=== PATIENT | female | born 1990 | race Caucasian/White ===

== ENCOUNTER 2016-09-14 17:21 | Emergency (ER) | payer OTHER ==
[~2016-09-14] VITALS: Ht 172.7 cm; Wt 113.6 kg
[~2016-09-14 17:21] MED LIST: BACL10TA PO; CHOL500050 PO; CITA10TA9 PO; CYCL10TA9 PO; DESMOPRESSIN PO; GABA-502 PO; HYDR25CA PO; LEVO100T6 PO; POLY17PO2 PO; SUMA100T2 PO; TOPI-31 PO; TRAZ-115 PO
[2016-09-14 17:23] VITALS: BP 141/93; PULSE 76; RESP 16; O2SAT 99
[2016-09-14] MEDS ORDERED: Ondansetron 2 mg/mL 2 mL Inj IVPUSH ONE (18:00)
[2016-09-14] MEDS ORDERED: 0.9% Sodium Chloride 1,000 ML IV ONE (18:00)
[2016-09-14] MEDS ORDERED: Ondansetron 8 mg ODT Tablet PO ONE (18:05)
--- NOTE | 2016-09-14 18:06 | ED.REPORT ---
HPI-General Illness Date of Service Sep 14, 2016 ED Provider: Jerry Subramanian MD A 26 year old female with a medical history including MS, diabetes insipidus, migraines, and pituitary apoplexy s/p surgical intervention presents to the ED with dizziness onset this morning upon awakening. Associated symptoms include nausea, retching, diarrhea, and dehydration. The patient denies diaphoresis, fever, or other symptoms. She has been drinking Gatorade frequently. Nursing Notes Stated Complaint: DEHYDRATION FROM DIABETES INSIPIDUS Chief Complaint: Female Abdominal Pain Nursing Notes Reviewed: Yes ([employer] not reconciled) Allergies: Coded Allergies: Penicillins (Verified Allergy, Severe, hives, 09/14/16) lavender (Lavandula angustifolia) (Verified Adverse Reaction, Intermediate , Migraine, 09/14/16) TAPE (Verified Adverse Reaction, Unknown, UNKNOWN, 09/14/16) Scheduled ([Desmopressin]) 1.5 TAB PO DAILY Baclofen (Baclofen) 10 Mg Tablet 5 MG PO BID Cholecalciferol (Vitamin D3) (Vitamin D3) 50,000 Unit Capsule 50,000 UNIT PO QW Citalopram (Citalopram) 10 Mg Tablet 20 MG PO DAILY Gabapentin (Gabapentin) 300 Mg Capsule 600 MG PO BID Levothyroxine (Levothyroxine) 100 Mcg Tablet 100 MCG PO DAILY Topiramate (Topiramate) 100 Mg Tablet 100 MG PO BID Scheduled PRN Cyclobenzaprine (Cyclobenzaprine) 10 Mg Tablet 10 MG PO TID PRN PRN Spasm Hydroxyzine Pamoate (Vistaril) 25 Mg Capsule 25 MG PO HS PRN PRN For Insomnia Ondansetron ODT (Ondansetron ODT) 8 Mg Tab.rapdis 8 MG PO Q4H PRN PRN For Nausea Polyethylene Glycol 3350 (Polyethylene Glycol 3350) 17 Gm Powd.pack 17 GM PO PRN PRN PRN For Constipation Promethazine (Promethazine) 25 Mg Tablet 25 MG PO Q6H PRN PRN Nausea or dizziness (vertigo) Sumatriptan Succinate (Sumatriptan Succinate) 100 Mg Tablet 25 MG PO DAILY PRN PRN For Headache Trazodone (Trazodone) 50 Mg Tablet 50 MG PO HS PRN PRN prn General Time Seen by MD: 17:53 Chief Complaint Dizziness Hx Obtained From: Patient Arrived By: Walk-in Sudden in Onset?: Yes Onset Occurred: 9 - 12 hours ago Symptom Duration: Since onset Severity: Current: No pain currently Severity: Maximum: No pain Associated with: Reports: Nausea, Vomiting (Retching) Pertinent Negative: Relieved by nothing Recent Healthcare: No recent doctor visit Similar Sx Previous: Yes Past Medical History Past Medical History Notes: Neurologist: Dr. 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 Lesion with mixed signal and diminished post contrast enhancement within the central portion of the pituitary gland. Lesion has imaging characteristics most compatible with pituitary hemorrhage likely related to underlying pituitary adenoma. Please correlate with clinical and serologic data. 2. Periventricular white matter, corpus callosal and upper cervical spine lesions compatible with reported history of multiple sclerosis are stable compared to prior examination. Dictated by: Lian Hemphill MD, PhD on 01/20/2015 at 9:21 Past Medical History Chronic low back pain Insomnia Fibromyalgia MS Pituitary mass and subsequent apoplexy requiring surgical intervention July 2015 Resultant diabetes insipidus Reports: Migraines, Obesity Past Surgical History Surgery for pituitary apoplexy July 2015 Reports: Cholecystectomy Smoking History Current Every Day Smoker, Unknown if Ever Smoker Social History Has two children Alcohol Use: "Social" Drug Use: THC Occupation lives with boyfriend, no work or school Ambulatory Status Independent Review of Systems + Dehydration Full Review of Systems Constitutional: Denies: Fever Respiratory: Denies: Non-productive cough, Shortness of breath GI: Reports: Diarrhea, Nausea, Vomiting (Retching) Skin: Denies Diaphoresis Neurologic: Reports: Dizziness Complete sys rev & neg: except as marked. Physical Exam Vital Signs Vital Signs Date Time Temp Pulse Resp B/P Pulse Ox O2 Delivery O2 Flow Rate FiO2 09/14/16 22:18 71 22 130/79 100 Room Air 09/14/16 17:23 36.2 76 16 141/93 99 Room Air Initial VS: Reviewed, Vital signs normal Head / Eyes: Atraumatic, Normocephalic ENT: Conjunctiva normal, No scleral icterus Neck: Supple, Full range of motion Respiratory: Breath sounds normal, Clear to auscultation, No respiratory distress Cardiovascular: Regular rate & rhythm, Heart sounds normal Abdomen / GI: Soft, Non-tender Skin: Warm, Dry, No cyanosis Neurologic: Alert, Oriented, Nonfocal Psychiatric: Mood/affect normal, Behavior normal, Normal thought content General/Constitutional: Awake, Alert Interpretation & Diagnostics Lab Results Interpretation Result Diagram: 09/14/16 1828 09/14/16 1828 Test 09/14/16 18:28 09/14/16 19:36 White Blood Count 8.5th/mm3 (3.8-10.1) Red Blood Count 4.27mil/mm3 (3.90-5.20) Hemoglobin 12.7g/dL (12.0-15.6) Hematocrit 38.1% (35.0-46.0) Mean Corpuscular Volume 89.2fL (81-100) Mean Corpuscular Hemoglobin 29.7pg (27.0-35.0) Mean Corpuscular Hemoglobin Concent 33.3% (32.0-37.0) Red Cell Distribution Width 14.3% (12.3-15.4) Platelet Count krupa/L (150-400) Neutrophils (%) (Auto) 76.1% (40-74) Lymphocytes (%) (Auto) 4.1% (14-46) Monocytes (%) (Auto) 10.0% (4-12) Eosinophils (%) (Auto) 2.2% (0-5) Basophils (%) (Auto) 0.2% (0-3) Sodium Level 144mEq/L (134-144) Potassium Level 4.0mEq/L (3.5-5.2) Chloride Level 107mEq/L (97-108) Carbon Dioxide Level 19mmol/L (18-29) Blood Urea Nitrogen < 2mg/dL (6-20) Creatinine 0.65mg/dL (0.57-1.00) Estimat Glomerular Filtration Rate 158mL/min (>59) Glucose Level 119mg/dL (60-99) Calcium Level 9.8mg/dL (8.5-10.1) Total Bilirubin 0.4mg/dL (0.0-1.2) Aspartate Amino Transf (AST/SGOT) 58U/L (0-50) Alanine Aminotransferase (ALT/SGPT) 77U/L (0-32) Alkaline Phosphatase 84U/L (25-150) Total Protein 7.1g/dL (6.4-8.4) Albumin 4.2g/dL (3.4-5.0) Human Chorionic Gonadotropin, Qual Negative (Negative) Urine Color Straw (YELLOW) Urine Appearance Clear (CLEAR,HAZY) Urine pH 5.5 (5.0-8.0) Urine Specific [place] <1.005 (1.003-1.035) Urine Protein Negativemg/dL (NEG,TRACE) Urine Glucose (UA) Negativemg/dL (NEGATIVE) Urine Ketones Negativemg/dL (NEGATIVE) Urine Occult Blood Negative (NEGATIVE) Urine Nitrite Negative (NEGATIVE) Urine Bilirubin Negative (NEGATIVE) Urine Urobilinogen Normalmg/dL (NORMAL) Urine Leukocyte Esterase Small (NEGATIVE) Urine RBC 0-2/hpf (0-2) Urine WBC 0-5/hpf (0-5) Urine Epithelial Cells Occasional/hpf (NONE-MOD) Urine Crystals None seen (NONE SEEN) Urine Bacteria None/hpf (NONE-FEW) Urine Hyaline Casts None/lpf (NONE) Urine Granular Casts None seen (NONE SEEN) Urine Waxy Casts None seen (NONE SEEN) Urine Red Blood Cell Casts None seen (NONE SEEN) Urine White Blood Cell Casts None seen (NONE SEEN) Urine Mucus None seen (None Seen) Urine Trichomonas None seen (NONE SEEN) Urine Yeast None (NONE SEEN) Urinalysis Comment None Urine Culture Reflexed Indicated Hold Urine Received (Received) Lab Results Interpretation: CBC normal CMP marginal LFT abnormality and patient states known chronic negative UA negative Re-Eval/Medical Decision Med Decision/Clinical Course This is a 26-year-old female with a history of pituitary apoplexy and surgical intervention with subsequent diabetes insipidus last drink liters of fluid a day (Gatorade) to stay hydrated and avoid electrolyte abnormalities. She developed some dizziness that almost sounds mildly vertiginous and some nausea and vomiting today and was worried about becoming increasingly dehydrated. He has had no fever, no abdominal pain, no diarrhea. She has no focal deficit. Exam she appears well and no extremity. She has no nystagmus or focal deficits that she is able to sit up and turn her head without overtly clearcut vertiginous findings. Her neuro exam is normal. Her Abdomen soft and entirely nontender. An IV was placed she received hydration, anti-emetics and is improved. Labs are obtained revealed no electrolyte abnormalities. Patient is much improved. I am not finding indication for imaging. Patient's being discharge and some ondansetron and promethazine. Routine precautions are reviewed. Source of Hx: Old records Time of Eval: 20:10 Patient Status: Condition improved Re-Evaluation/Progress Note: Patient rechecked. Additional physical exam performed. Time of Eval: 21:19 Patient Status: Condition improved Re-Evaluation/Progress Note: Patient is feeling much improved. Discussed with patient lab results, diagnosis, and plan for discharge. Follow-up and return to the ER instructions given. Patient agrees with plan for care and all questions were addressed. Differential Diagnosis: Negative: Abdominal pain, Abrasion, Allergies, Asthma, Diabetes mellitus, G-tube repair/replacement, Neutropenia, Pneumonia Counseled Regarding: Diagnosis, Lab results, Need for follow-up, When/why to return to ED Discharge & Departure Primary Impression: Dizziness Additional Impressions: Diabetes insipidus Vomiting Vomiting type: unspecified Vomiting Intractability: unspecified Nausea presence: unspecified Qualified Code: R11.10 - Vomiting, unspecified Disposition: Home Discharge Condition All VS Reviewed: Yes Condition: Improved Additional Instructions: 1. Your blood tests were normal (except for the trace liver function abnormalitites) 2. Your electrolytes were normal. 3. Take ondansetron 8mg - let dissolve underneath tongue - up to every 4 hours as needed. 4. The dizziness you describe is suggestive of mild vertigo. This is expected to improve with time over the next few days. Move slowly and take it easy. ( Rapid turning of the head tends to provoke the dizziness) 5. You can also take promethazine 25mg up to every 4 hours as needed for the nausea or dizziness. (This medication can cause mild drowsiness) 6. Return again if new, worsening, or uncontrolled symptoms 7. Follow up with your regular doctor if not clearly improved in a few days Referrals: NOPCP (PCP) Scribe Attestation Portions of this note were transcribed by Yola Christopher. I, Dr. Subramanian, personally performed the history, physical exam, and medical decision-making; I reviewed and confirmed the accuracy of the information in the transcribed note. Signed by: France Fish, 09/14/2016, 23:00 Jerry Subramanian MD Sep 14, 2016 18:06 YOLA CHRISTOPHER Sep 14, 2016 19:51
[2016-09-14 18:39] LABS: BASOPHILS % (AUTO) 0.2 % (0-3); EOSINOPHILS % (AUTO) 2.2 % (0-5); Mean Corpuscular Hemoglobin 29.7 pg (27.0-35.0); Mean Corpuscular Volume 89.2 fL (81-100); NEUTROPHILS % (AUTO) 76.1 % (40-74)
[2016-09-14] MEDS ORDERED: Promethazine 12.5 mg/50 mL-NS 12.5 MG in IV Premix 1 EACH IV ONE (19:00)
[2016-09-14 20:23] LABS: APPEARANCE,URINE CLEAR (CLEAR,HAZY); COLOR,URINE STRAW (YELLOW); OCCULT BLOOD,URINE NEGATIVE (NEGATIVE); PH,URINE 5.5 (5.0-8.0); UROBILINOGEN,URINE NORMAL (NORMAL)
[2016-09-14] MEDS ORDERED: _Ondansetron ODT 4 mg Tablet PO PRN (21:20)
[2016-09-14 22:18] VITALS: BP 130/79; PULSE 71; RESP 22; O2SAT 100
[2016-09-14] MEDS ORDERED: ONDA8TAB10 PO (22:27)
[2016-09-14] MEDS ORDERED: PROM25TA14 PO (22:27)
[2016-10-31] MEDS ORDERED: CITA10TA14 PO (13:47)
[2016-10-31] MEDS ORDERED: LEVO100T6 PO (13:47)
[2016-10-31] MEDS ORDERED: ERGO2000 PO (13:47)
[2016-10-31] MEDS ORDERED: GABA600T2 PO (13:47)
[2016-10-31] MEDS ORDERED: [UNRECOGNIZED DRUG - CODE] SQ (13:47)
[2016-10-31] MEDS ORDERED: CITA20TA11 PO (13:47)
[2016-10-31] MEDS ORDERED: FING0.5C3 PO (13:47)
[2016-10-31] MEDS ORDERED: CHOL200047 PO (13:47)
[2016-10-31] MEDS ORDERED: DESM0.1T2 PO (13:47)
[2016-10-31] MEDS ORDERED: HYDR-4003 PO (13:47)
[2016-10-31] MEDS ORDERED: QUE9 PO (13:47)
[2016-10-31] MEDS ORDERED: BACL10TA PO (13:47)
== END 2016-09-14 23:03 | disposition home or self-care (01) ==
LOC: SED 17:21
DX: E23.2 Diabetes insipidus (principal); M79.7 Fibromyalgia; G35 Multiple sclerosis; F17.200 Nicotine dependence, unspecified, uncomplicated; Z88.0 Allergy status to penicillin; Z88.8 Allergy status to other drugs, medicaments and biological substances
CPT/HCPCS: 80053; 81000; 84703; 85025; 87086; 87088; 96361; 96374; 96375; 99285; J2405; J2550; J7030

== ENCOUNTER 2016-10-17 22:00 | Emergency (ER) | payer OTHER ==
[~2016-10-17] VITALS: Ht 172.7 cm; Wt 118.2 kg
[~2016-10-17 22:00] MED LIST changes: +ONDA8TAB10 PO; +PROM25TA14 PO
[2016-10-17 22:10] VITALS: BP 148/92; PULSE 89; RESP 16; O2SAT 98
--- NOTE | 2016-10-18 00:36 | ED.REPORT ---
HPI-Back Pain Under 40 Date of Service Oct 18, 2016 ED Provider: Cale Rajan MD Pt is a 26 y.o. female with a hx of pituitary apoplexy, MS, chronic low back pain, and fibromyalgia who presents to the ED c/o left hip pain onset 2 days ago. Pt reports associated low back pain and pain with ambulation. She denies bladder or bowel dysfunction and numbness or tingling in her lower extremities. Pt also denies any trauma. She denies recent steroid and narcotic use. She claims that narcotics do not improve her acute pain and she used a CBD "vape pen " which has not provided relief. Nursing Notes Stated Complaint: HIP/SCIATIC PAIN Chief Complaint: Back Pain or Injury Nursing Notes Reviewed: Yes Allergies: Coded Allergies: Penicillins (Verified Allergy, Severe, hives, 09/14/16) lavender (Lavandula angustifolia) (Verified Adverse Reaction, Intermediate , Migraine, 09/14/16) TAPE (Verified Adverse Reaction, Unknown, UNKNOWN, 09/14/16) Scheduled ([Desmopressin]) 1.5 TAB PO DAILY Baclofen (Baclofen) 10 Mg Tablet 5 MG PO BID Cholecalciferol (Vitamin D3) (Vitamin D3) 50,000 Unit Capsule 50,000 UNIT PO QW Citalopram (Citalopram) 10 Mg Tablet 20 MG PO DAILY Gabapentin (Gabapentin) 300 Mg Capsule 600 MG PO BID Levothyroxine (Levothyroxine) 100 Mcg Tablet 100 MCG PO DAILY Topiramate (Topiramate) 100 Mg Tablet 100 MG PO BID Scheduled PRN Cyclobenzaprine (Cyclobenzaprine) 10 Mg Tablet 10 MG PO TID PRN PRN Spasm Hydroxyzine Pamoate (Vistaril) 25 Mg Capsule 25 MG PO HS PRN PRN For Insomnia Ondansetron ODT (Ondansetron ODT) 8 Mg Tab.rapdis 8 MG PO Q4H PRN PRN For Nausea Polyethylene Glycol 3350 (Polyethylene Glycol 3350) 17 Gm Powd.pack 17 GM PO PRN PRN PRN For Constipation Promethazine (Promethazine) 25 Mg Tablet 25 MG PO Q6H PRN PRN Nausea or dizziness (vertigo) Sumatriptan Succinate (Sumatriptan Succinate) 100 Mg Tablet 25 MG PO DAILY PRN PRN For Headache Trazodone (Trazodone) 50 Mg Tablet 50 MG PO HS PRN PRN prn General Time Seen by MD: 00:33 Chief Complaint Other (Hip pain, left) Hx Obtained From: Patient Arrived By: Walk-in Sudden in Onset?: Yes Onset Occurred: 2 days ago Symptom Duration: Since onset Caused by: Spontaneous/no mechanism Quality: Painful Past Medical History Past Medical History Notes: Neurologist: Dr. 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 Lesion with mixed signal and diminished post contrast enhancement within the central portion of the pituitary gland. Lesion has imaging characteristics most compatible with pituitary hemorrhage likely related to underlying pituitary adenoma. Please correlate with clinical and serologic data. 2. Periventricular white matter, corpus callosal and upper cervical spine lesions compatible with reported history of multiple sclerosis are stable compared to prior examination. Dictated by: Lian Hemphill MD, PhD on 01/20/2015 at 9:21 Past Medical History Chronic low back pain Insomnia Fibromyalgia MS Pituitary mass and subsequent apoplexy requiring surgical intervention July 2015 Resultant diabetes insipidus Reports: Migraines, Obesity Past Surgical History Surgery for pituitary apoplexy July 2015 Reports: Cholecystectomy Smoking History Current Every Day Smoker, Unknown if Ever Smoker Social History Has two children Alcohol Use: "Social" Drug Use: THC Occupation lives with boyfriend, no work or school Ambulatory Status Independent Review of Systems Female: Denies: Incontinence Musculoskeletal: Reports: Back pain, Joint pain (Left hip) Neurologic: Reports: Problem walking (due to pain), Denies: Bladder dysfunction, Bowel dysfunction, Numbness Complete sys rev & neg: except as marked. Physical Exam Initial Vital Signs Vital Signs (First) Date Time Temp Pulse Resp B/P Pulse Ox O2 Delivery O2 Flow Rate FiO2 10/17/16 22:10 36.7 89 16 148/92 98 Room Air Initial VS: Reviewed, Vital signs abnormal Abdomen / GI: No distention Extremities: Vascular intact, Neuro intact Skin: Warm, Dry, No cyanosis Psychiatric: Mood/affect normal, Behavior normal, Normal thought content General/Constitutional: Awake, Alert, No acute distress, Well appearing, Well developed, Well hydrated, Well nourished, Not toxic appearing Appearance / Presentation: Positive: Obese Back: Atraumatic, Inspection NL, No midline vertebral tend, Straight leg raise neg Tender left sciatic notch Neurologic: Oriented X3, Speech NL, No motor deficits Re-Eval/Medical Decision Med Decision/Clinical Course 26-year-old female who has an acute exacerbation of chronic left sciatica. Straight leg raising test is negative. There is no indication of an urgent or emergent surgical situation. She has steroids and pain medication at home she can use. She will follow-up with her primary doctor for any persistent symptoms. Source of Hx: Old records Re-Evaluation/Progress : Time of Eval: 00:44 Re-Evaluation/Progress Note: Physical exam performed. Discussed plan for discharge, pt understands and agreees with plan. Counseled Regarding: Diagnosis, Lab results, Need for follow-up, When/why to return to ED Discharge & Departure Impression: Primary Impression: Left sided sciatica Disposition: Home All VS Reviewed: Yes Condition: Improved Patient Instructions: Sciatica (ED) Additional Instructions: Hydrocortisone 20 mg 3 times daily for 5 days. Hydrocodone/acetaminophen as needed. Talk to your regular doctor in 5-7 days if this is not improving. Referrals: NOPCP (PCP) [facility] [place] Attestation Portions of this note were transcribed by Fabiola Fraire. I, Dr. Rajan personally performed the history, physical exam and medical decision-making; I reviewed and confirmed the accuracy of the information in the transcribed note. Signed by: [place] Ruiz, 10/18/16 and 0056. copies to: [facility] Cale Rajan MD Oct 18, 2016 00:36 FABIOLA FRAIRE Oct 18, 2016 00:43
[2016-10-18 01:00] VITALS: PULSE 80; RESP 16
[2016-10-31] MEDS ORDERED: GABA600T2 PO (13:47)
[2016-10-31] MEDS ORDERED: QUE9 PO (13:47)
[2016-10-31] MEDS ORDERED: [UNRECOGNIZED DRUG - CODE] SQ (13:47)
[2016-10-31] MEDS ORDERED: ERGO2000 PO (13:47)
[2016-10-31] MEDS ORDERED: BACL10TA PO (13:47)
[2016-10-31] MEDS ORDERED: CITA20TA11 PO (13:47)
[2016-10-31] MEDS ORDERED: LEVO100T6 PO (13:47)
[2016-10-31] MEDS ORDERED: FING0.5C3 PO (13:47)
[2016-10-31] MEDS ORDERED: DESM0.1T2 PO (13:47)
[2016-10-31] MEDS ORDERED: CHOL200047 PO (13:47)
[2016-10-31] MEDS ORDERED: HYDR-4003 PO (13:47)
[2016-10-31] MEDS ORDERED: CITA10TA14 PO (13:47)
== END 2016-10-18 01:00 | disposition home or self-care (01) ==
LOC: SED 22:00
DX: M54.32 Sciatica, left side (principal); G35 Multiple sclerosis; M79.7 Fibromyalgia; F17.200 Nicotine dependence, unspecified, uncomplicated; Z88.0 Allergy status to penicillin; Z88.8 Allergy status to other drugs, medicaments and biological substances; Z91.048 Other nonmedicinal substance allergy status

== ENCOUNTER 2016-11-01 11:10 | Day surgery (SDC) | payer OTHER ==
[~2016-11-01] VITALS: Ht 172.7 cm; Wt 118.0 kg
[~2016-11-01 11:10] MED LIST changes: +CHOL200047 PO; -CHOL500050 PO; +CITA10TA14 PO; -CITA10TA9 PO; +CITA20TA11 PO; -CYCL10TA9 PO; +DESM0.1T2 PO; -DESMOPRESSIN PO; +ERGO2000 PO; +FING0.5C3 PO; -GABA-502 PO; +GABA600T2 PO; +HYDR-4003 PO; -HYDR25CA PO; +Lactated Ringer's 1,000 ML IV ONE; -ONDA8TAB10 PO; -POLY17PO2 PO; -PROM25TA14 PO; +QUE9 PO; -SUMA100T2 PO; -TOPI-31 PO; -TRAZ-115 PO; +[UNRECOGNIZED DRUG - CODE] SQ
[2016-11-01] MEDS ORDERED: Propofol 10,000 mCg/mL 20 mL Inj ONE (11:11)
[2016-11-01 11:48] VITALS: BP 135/80; PULSE 100; RESP 18; O2SAT 98
[2016-11-01] MEDS ORDERED: Lactated Ringer's 1,000 ML IV SCH (12:54)
--- NOTE | 2016-11-01 12:54 | PCM.HPANE ---
Patient Data Date of Service: November 01, 2016 Surgeon Admitting Provider: Attending Provider:Nataly Subramanian MD Primary Care Physician:Monica Other Provider:Alyssa Lindsay Anesthesia Reason for Visit Diarrhea/Heartburn Ht/WT & BMI Height (Feet): 5 Height (Inches): 8 Weight (Kilograms): 118 Body Mass Index 39.00 Allergies Coded Allergies: Penicillins (Verified Allergy, Severe, hives, 11/01/16) lavender (Lavandula angustifolia) (Verified Adverse Reaction, Intermediate , Migraine, 11/01/16) TAPE (Verified Adverse Reaction, Unknown, UNKNOWN, 11/01/16) Past Anesthesia History Anesthesia History: Denies:: Anesthesia Reactions, Fam Anesthesia Reaction, Fam Malignant Hypertherm, Malignant Hyperthermia Diabetes History Hx Diabetes?: No MRSA MRSA: No Medications Reported Medications Cholecalciferol (Vitamin D3) (Vitamin D3)2,000 Unit Capsule2,000 Unit PO DAILY 10/31/16 Ergocalciferol (Vitamin D2) (Vitamin D2)2,000 Unit Ddjyzz74,000 Unit PO WEEKLY 10/31/16 Somatropin (Omnitrope)5.8 Mg Vial5.8 Mg SQ 10/31/16 Levothyroxine 100 Mcg Xbgsjf699 Mcg PO DAILY For Thyroid Replacement Ref 0 10/31/16 Fingolimod (Gilenya)0.5 Mg Capsule0.5 Mg PO 10/31/16 Gabapentin 600 Mg Tygexr600 Mg PO BID Ref 0 10/31/16 Desmopressin Acetate 0.1 Mg Tablet0.1 Mg PO 10/31/16 Citalopram 20 Mg Pmhhpc67 Mg PO DAILY Ref 0 10/31/16 Cholestyramine (Cholestyramine Packet)4 Gm Packet4 Gm PO DAILY Ref 0 10/31/16 Citalopram Hydrobromide (Celexa)10 Mg Xldhhj35 Mg PO DAILY Ref 0 10/31/16 Baclofen 10 Mg Zdeklx93 Mg PO HS Ref 0 10/31/16 Discontinued Reported Medications Hydrocodone-Acetaminophen 5-325 mg 1 Each Tablet1 Tablet PO Q4H PRN For Pain Ref 0 10/31/16 [Desmopressin] No Conflict Check1.5 Tab PO DAILY 09/19/15 Levothyroxine 100 Mcg Uqsvwt594 Mcg PO DAILY For Thyroid Replacement Ref 0 09/19/15 Cyclobenzaprine 10 Mg Xucvio84 Mg PO TID PRN Spasm 07/23/15 Topiramate 100 Mg Rcugaw492 Mg PO BID Ref 0 07/14/15 Hydroxyzine Pamoate (Vistaril)25 Mg Upuvtet20 Mg PO HS PRN For Insomnia Ref 0 07/14/15 Citalopram 10 Mg Wtddun97 Mg PO DAILY Ref 0 07/14/15 Baclofen 10 Mg Tablet5 Mg PO BID Ref 0 07/14/15 Sumatriptan Succinate 100 Mg Hahbya71 Mg PO DAILY PRN For Headache #9 03/12/15 Gabapentin 300 Mg Dijejdm667 Mg PO BID #60 03/12/15 Trazodone 50 Mg Fhfvzh62 Mg PO HS PRN prn 30 Days Ref 0 12/21/14 Polyethylene Glycol 3350 17 Gm Powd.pack17 Gm PO PRN PRN For Constipation 12/21/14 Cholecalciferol (Vitamin D3) (Vitamin D3)50,000 Unit Hrmggza44,000 Unit PO QW 12/21/14 Discontinued Scripts Promethazine 25 Mg Xttkvx95 Mg PO Q6H PRN Nausea or dizziness (vertigo) #15 TABLET Ref 0 Prov:Jerry Subramanian MD 09/14/16 Ondansetron ODT 8 Mg Tab.rapdis8 Mg PO Q4H PRN For Nausea #10 TABLET Prov:Jerry Subramanian MD 09/14/16 History History of ENT Problems?: Yes HEENT History: Positive for:: Sinus Problem (ENVIRONMENTAL ALLERGIES) Denture Type: None Teeth Condition: Within Normal Limits Hx of Heart Problems?: No Cardiovascular History: Denies:: AICD Congestive Heart Failure Hypertension Pacemaker Valvular Heart Disease Hx of Respiratory Problem?: No Respiratory History: Denies:: Tuberculosis Hx Neurologic Problems?: Yes Neurological History: Positive for:: Headaches Denies:: CVA Other History/Comments MS diabetes insipidus Hx of GI Problems?: Yes Gastrointestinal History: Positive for:: Gastroesphageal Reflux Heartburn Hx of Problems?: Yes Genitourinary History: Positive for:: Urinary Tract Infection (HX OF) Female Hx: Denies:: Currently (pt has IUD) Problems with Breasts? Hx Musculoskeletal Problems?: Yes Musculoskeletal History: Positive for:: Back Injury (unknown, lumbar/sacral) Fibromyalgia Musculoskeletal Trauma (hx of fall age 6) Hx of Psycho/Social Problems?: Yes Psycho Social History: Positive for:: Anxiety Hx Surgeries?: Yes (YOSEPH, brain mass from behind pituitary gland) Hx Any Other Health Problems?: Yes Other History: Positive for:: Hospitalization (r/t surgery, childbirth ) Denies:: Cancer Endocrine Disease Thyroid Disease History Blood Transfusions: Denies:: Blood Transfusions Hx Diabetes: No Other Pertinent History: IGG4, DIABETES INSIPIDOUS, MS, HYPOTHYROID Hx Alcohol Use: Yes (RARELY)Hx Substance Use: Yes (Marijuana) Smoking Status: Current Every Day Smoker Unknown if Ever Smoker Have You Smoked inLast 12 mo: No Stop/Bang Treated for Sleep Apnea?: No Do You Have a CPAP Machine?: No S-Snoring: Do You Snore Loudly: No T-Tired: feel tired, fatigued: No O-Obsered: Observed not breath: No P-Blood Pressure: treated: No B- Body Mass Index > 35 kg/m2: Yes A- Age over 50: No N- Neck Large Circumference: Yes G- Gender Male: No KEVON Total Score: 2 Risk Assessment Category Category 1A: Patient has history of documented sleep apnea, and HAS NOT received any narcotic, sedative or anesthesia administration during this stay. Category 1B: Patient has history of documented sleep apnea, and HAS received any narcotic , sedative or anesthesia administration during this stay Category 2: Patient has SUSPECTED Obstructive Sleep Apnea, and HAS received any narcotic , sedative or anesthesia administration during this stay. Category 3: Patient has SUSPECTED Obstructive Sleep Apnea and HAS NOT received narcotic, sedative or anesthesia administration during this stay. Category 4: Outpatient in Procedural Areas with known sleep apnea or who screen positive for High Risk via the STOP/BANG questionnaire. Exam Exam Vital Signs Vital Signs Date Time Temp Pulse Resp B/P Pulse Ox O2 Delivery O2 Flow Rate FiO2 11/01/16 11:48 36.6 100 18 135/80 98 Room Air General Appearance: Alert, Oriented X3 HEENT/AIRWAY: MP 2 Lungs: Clear to Auscultation Heart: Exam Unremarkable Meds/Labs/Diagnostics Admission Meds Current Medications Lactated Ringer's (Lr) 1,000 ml @ 10 mls/hr Q24H ONCE IV Last administered on 11/01/16t 12:08; Start 11/01/16 at 06:00; Stop 11/02/16 at 05:59 Plan Impression Patient chart reviewed, patient interviewed and anesthestic plan with risks, benefits, and alternatives discussed, and informed consent obtained. NPO per Anesth. Guidelines: Yes ASA Physical Status: ASA3 Severe Disease Anesthetic Plan: MAC Bene/Risks/Altern/Consents: Yes HP Complete Prior to Induction: Yes Tariq Moyer MD November 01, 2016 12:54
[2016-11-01] MEDS ORDERED: MetoCLOpramide 5 mg/mL 2 mL Inj IVPUSH PRN (12:55)
[2016-11-01] MEDS ORDERED: Ondansetron 2 mg/mL 2 mL Inj IVPUSH PRN (12:55)
[2016-11-01 13:06] VITALS: BP 150/97; PULSE 89; RESP 16; O2SAT 99
[2016-11-01 13:17] VITALS: BP 144/87; PULSE 84; RESP 12; O2SAT 100
[2016-11-01 13:29] VITALS: BP 138/98; PULSE 91; RESP 14; O2SAT 100
--- NOTE | 2016-11-01 13:34 | PCM.ANEP1 ---
Post Anesthesia Phase 1 PACU Phase 1 Assessment Date of Service: November 01, 2016 Vital Signs Vital Signs Date Time Temp Pulse Resp B/P Pulse Ox O2 Delivery O2 Flow Rate FiO2 11/01/16 13:29 91 14 138/98 100 Room Air 11/01/16 13:17 84 12 144/87 100 Room Air 11/01/16 13:06 36.7 89 16 150/97 99 Room Air 11/01/16 11:48 36.6 100 18 135/80 98 Room Air Anesthetic Administered: MAC Level of Alertness: Awake, talking Pain: No Nausea or Vomiting: No Cardiovascular Function and Hy: Yes Lungs: Clear to Auscultation Complications: No Follow up Care: No Tariq Moyer MD November 01, 2016 13:34
--- NOTE | 2016-11-01 15:15 | ENDO ---
[address] [address] ENDOSCOPY PROCEDURE PATIENT: ISSA RODRIGUEZ : 1990 MR#: [id number] ADMIT: 11/01/2016 JOB ID: [id number] DATE OF SERVICE: 11/01/2016 FIRST PROCEDURE PERFORMED: Esophagogastroduodenoscopy. INDICATION: Diarrhea and heartburn. ASA CLASSIFICATION, MALLAMPATI SCORE AND MEDICATIONS: The patient's ASA classification, Mallampati score and medications as per anesthesia report. INSTRUMENT USED: GIF-H180J. PROCEDURE DETAILS: After informed consent was obtained, the patient was brought into the GI suite, where she was placed on oxygen via nasal cannula and monitored with continuous pulse oximeter, telemetry, and blood pressure monitoring. A time-out was performed. Then, she was placed in the left lateral decubitus position, and medications were then administered for sedation. A bite block was placed. A standard EGD scope was inserted through the bite block and advanced under direct visualization to the second portion of the duodenum without difficulty. FINDINGS: 1. Normal appearing duodenal bulb, first and second portions. Multiple random biopsies were obtained. 2. Normal appearing pylorus and antrum. In the body of the stomach the mucosa had a mosaic appearance. Multiple biopsies were obtained. 3. Retroflexed views in the gastric body revealed mucosa in the fundus that was mosaic in appearance. 4. The GE junction was regular at 40 cm with a regular Z-line. 5. Normal appearing esophagus. IMPRESSION: 1. Mosaic appearing mucosa in the gastric body suggestive of gastropathy. Multiple biopsies obtained. 2. Otherwise normal exam to second portion of duodenum. RECOMMENDATIONS: 1. Await biopsy results. 2. Proceed to colonoscopy. COMPLICATIONS: None. ESTIMATED BLOOD LOSS: Less than 5 mL. SECOND PROCEDURE PERFORMED: Colonoscopy. INDICATION: Diarrhea. ASA CLASSIFICATION, MALLAMPATI SCORE AND MEDICATIONS: Please see above for ASA classification, Mallampati score and medications. INSTRUMENT USED: [id number]. PREPARATION QUALITY: Fair. PROCEDURE DETAILS: After completion of the EGD exam, the patient was turned and then a digital rectal exam was performed which was unremarkable. The colonoscope was then inserted into the rectum and advanced under direct visualization to the terminal ileum, which was identified by the presence of the ileocecal valve and villous appearing mucosa of the terminal ileum. Once the terminal ileum was reached, the colonoscope was then withdrawn back into the rectum as the mucosa and lumen were examined. In the rectum, retroflexion was performed. Following retroflexion, remaining air in the rectum was suctioned, and procedure was completed. FINDINGS: 1. Normal appearing terminal ileum. Multiple random biopsies obtained. 2. Normal appearing colon mucosa from rectum to cecum. Multiple random biopsies were obtained. IMPRESSION: Normal colonoscopy to terminal ileum. RECOMMENDATIONS: 1. Await biopsy results. 2. Follow up in GI clinic. COMPLICATIONS: None. ESTIMATED BLOOD LOSS: Less than 5 mL.
--- NOTE | 2016-11-02 15:07 | PATH ---
SURGICAL PATHOLOGY Attending Physician:Kassy Ardon CASE STATUS: Signed Out PATIENT NAME: ISSA RODRIGUEZ PID: [id number] : 1990 DATE COLLECTED:11/01/2016 21:02 SPECIMEN: 1: Duodenum, Biopsy 2: Gastric, Biopsy 3: Colon, Biopsy 4: Ileum, Biopsy CLINICAL HISTORY: 1). RANDOM DUODENAL BIOPSY 2). RANDOM GASTRIC BIOPSY 3). RANDOM COLON BIOPSY 4). TERMINAL ILEUM BIOPSY FINAL DIAGNOSIS: 1.RANDOM DUODENAL BIOPSIES: FRAGMENTS OF NORMAL-APPEARING DUODENUM MUCOSA. Normal delicate mucosal villi present. Negative for significant inflammation, dysplasia and malignancy. 2.RANDOM GASTRIC BIOPSIES: MODERATE TO SEVERE CHRONIC ACTIVE GASTRITIS INVOLVING ANTRAL AND FUNDIC MUCOSA. Immunohistochemistry for Helicobacter pending, to be reported by addendum. Negative for intestinal metaplasia. Negative for dysplasia and malignancy. 3.RANDOM COLON BIOPSIES: FRAGMENTS OF COLON MUCOSA WITH MULTIPLE SMALL FOCI OF MUCOSAL AND SUBMUCOSAL LYMPHOID HYPERPLASIA, BUT NEGATIVE FOR GRANULOMAS, SIGNIFICANT ARCHITECTURAL DISTORTION, SIGNIFICANT INFLAMMATION, DYSPLASIA AND MALIGNANCY. 4.TERMINAL ILEUM BIOPSY: FRAGMENTS OF NORMAL-APPEARING TERMINAL ILEUM MUCOSA. Negative for granulomas. Negative for significant inflammation, dysplasia and malignancy. ICD10 code K29.70 GROSS DESCRIPTION: The specimen is received in four formalin filled containers labeled with the patient's name. 1). The specimen is sublabeled "random duodenal" and consists of 4 portions of tissue which aggregate to 0.5 x 0.4 x 0.3 CM. The specimen is entirely submitted in cassette 1A. 2). The specimen is sublabeled "random gastric" and consists of 4 portions of tissue which aggregate to 0.4 x 0.4 x 0.2 CM. The specimen is entirely submitted in cassette 2A. 3). The specimen is sublabeled "random colon" and consists of multiple portions of tissue which aggregate to 0.5 x 0.5 x 0.2 CM. The specimen is entirely submitted in cassette 3A. 4). The specimen is sublabeled " TI " and consists of 3 portions of tissue which aggregate to 0.3 x 0.3 x 0.2 CM. The specimen is entirely submitted in cassette 4A. 11/01/2016 DAC MICRO DESCRIPTION: See diagnosis. ICD-9 CODES: CPT CODES: 1: 26869 2: 30997, 77186 3: 43492 4: 97293 PROCEDURE/ADDENDA: Immunohistochemistry SPI Interpretation {Not Entered} Results-Comments Immunohistochemistry results 2.RANDOM GASTRIC BIOPSIES: NEGATIVE FOR HELICOBACTER PYLORI BY IMMUNOHISTOCHEMISTRY. This test was developed and its performance characteristics determined by [employer]. It has not been cleared or approved by the [place]. Food and Drug Administration. The FDA has determined that such clearance or approval is not necessary. This test is used for clinical purposes. It should not be regarded as investigational or for research. Electronically Signed Out John Merritt MD Electronically Signed Out John Merritt MD [facility] [address], [place] [address] Technical component performed at [facility], [facility] [address], [place], [address]
== END 2016-11-01 23:59 | disposition home or self-care (01) ==
LOC: END 11:10
PROVIDERS: ATTEND Internal Medicine Gastroenterology
DX: K29.50 Unspecified chronic gastritis without bleeding (principal); K21.9 Gastro-esophageal reflux disease without esophagitis; R19.7 Diarrhea, unspecified; R10.32 Left lower quadrant pain; E11.9 Type 2 diabetes mellitus without complications; M79.7 Fibromyalgia; G35 Multiple sclerosis; F41.9 Anxiety disorder, unspecified; E66.01 Morbid (severe) obesity due to excess calories; D35.2 Benign neoplasm of pituitary gland; F17.210 Nicotine dependence, cigarettes, uncomplicated; Z79.4 Long term (current) use of insulin; Z68.41 Body mass index [BMI] 40.0-44.9, adult
CPT/HCPCS: 43239; 45380; 88305; 88342; J7120